=== PATIENT | male | born 1975 | race Caucasian/White ===

== ENCOUNTER 2021-11-04 07:08 | Observation (INO) | payer BC ==
[~2021-11-04] VITALS: Ht 177.8 cm; Wt 94.5 kg
[2021-11-04] VITALS (10 sets, daily range): BP systolic 110–213; BP diastolic 58–104
--- NOTE | 2021-11-04 07:08 | NUR ---
PT TO ROOM VIA WC FOR BEDSIDE TRIAGE SPEAKING IN COMPLETE SENTENCES IN NO DISTRESS
[2021-11-04 08:04] LABS: HEMATOCRIT 45.6 % (39.0-50.0); HEMOGLOBIN 15.8 g/dl (14.0-18.0); MEAN CELL VOLUME 95.2 fL CALC (80.0-100.0); MEAN CORPUSCULAR HGB CONC 34.6 g/dL CAL (32.0-36.0); NEUT# 2.54 thou/uL (1.82-7.42); RED BLOOD COUNT 4.79 mill/uL (4.70-6.10); RED CELL DISTRI WIDTH 11.9 % (11.5-15.5)
--- NOTE | 2021-11-04 08:20 | NUR ---
PATIENT AWAITING RESULTS OF LABS AND RADIOLOGY.
--- NOTE | 2021-11-04 08:36 | NUR ---
UP AMBULATED TO RESTROOM IN NO DISTRESS
[2021-11-04 08:48] LABS: ALBUMIN 4.4 g/dL (3.2-5.0); ALKALINE PHOSPHATASE 68 u/l (38-126); ANION GAP 16 (6-22 (CALC)); BILIRUBIN, TOTAL 0.3 mg/dL (0.0-1.4); BUN 14 mg/dL (9-20); BUN/CREATININE RATIO 12 (12-20 (CALC)); CARBON DIOXIDE 20 mmol/l (22-30); CHLORIDE 106 mmol/l (95-108); CREATININE 1.1 mg/dL (0.7-1.3); GFR > 60 ML/MIN (>=60 (CALC)); GFR FOR AFR.AMER. > 60 ML/MIN (>=60 (CALC)); POTASSIUM 3.6 mmol/l (3.5-5.1); SGOT/AST 36 u/l (17-59); SODIUM 139 mmol/l (137-146); TOTAL PROTEIN 7.4 g/dL (6.3-8.2)
[2021-11-04 09:00] LABS: MYOGLOBIN 43 ng/mL (0 - 121)
--- NOTE | 2021-11-04 12:53 | NUR ---
REPORT GIVEN TO ICU. PATIENT TO GO TO ICU 5.
--- NOTE | 2021-11-04 12:56 | NUR ---
TRANSPORTED TO ICU VIA STRETCHER IN NO DISTRESS
[2021-11-04] MEDS ORDERED: BL IBUPROFEN200 MG PO (13:51)
--- NOTE | 2021-11-04 14:00 | NUR ---
PT ARRIVES TO ROOM 5 IN THE ICU, ALERT AND ORIENTED X 3. LUNGS CLEAR, RA. PT FEELS MUCH BETTER NOW THAT BLOOD PRESSURE IS LOWER. PT WITH NEGATIVE HEALTH HISTORY, NOW RESTS IN THE BED IN NO DISTRESS.
--- NOTE | 2021-11-04 16:32 | NUR ---
CARDENE DRIP LOWERED FROM 5 MG/HR TO 2.5 MG/HR PER ACCEPTABLE BLOOD PRESSURE IN THE 130s AND THE ADDITION OF COZAAR. PT RESTS IN THE BED IN NO ACUTE DISTRESS.
--- NOTE | 2021-11-04 17:57 | NUR ---
PT SEEN BY ESSIE TIRADO THIS AFTERNOON, WHO TURNED CARDENE DRIP OFF. PT CURRENTLY 140/88. NO COMPLAINTS, NO DISTRESS.
--- NOTE | 2021-11-04 19:45 | NUR ---
RESTING IN BED. DENIES ANY DISCOMFORTS. VSS. BP STABLE. RESP NON-LABORED. LUNGS CLEAR. NO PERIPHERAL EDEMA, PULSES INTACT. BEARING GRINDER SHOWS SR. DISCUSSED PLAN OF CARE. DENIES NEEDS AT THIS TIME. CALL VAN IN REACH.
--- NOTE | 2021-11-04 21:50 | NUR ---
RESTING QUIETLY IN BED. VSS. SB ON MONITOR.
--- NOTE | 2021-11-05 | NUR ---
RESTING WITH EYES CLSOED. RESP NON-LABORED. VSS. SR ON MONITOR.
[2021-11-05 00:16] VITALS: BP 137/88
[2021-11-05 02:00] VITALS: BP 117/71
--- NOTE | 2021-11-05 02:00 | NUR ---
NO CHANGES TO REPORT. VSS. SR ON MONITOR.
--- NOTE | 2021-11-05 04:00 | NUR ---
RESTING WITH EYES CLSOED. RESP NON-LABORED. VSS.
[2021-11-05 04:04] VITALS: BP 98/74
[2021-11-05 05:00] VITALS: BP 119/84
[2021-11-05 06:00] VITALS: BP 124/81
--- NOTE | 2021-11-05 06:00 | NUR ---
NO CHANGES TO REPORT. VSS.
[2021-11-05 06:13] LABS: HEMATOCRIT 49.4 % (39.0-50.0); HEMOGLOBIN 16.9 g/dl (14.0-18.0); MEAN CELL VOLUME 97.8 fL CALC (80.0-100.0); MEAN CORPUSCULAR HGB 33.5 pG CALC (26.0-32.0); MEAN CORPUSCULAR HGB CONC 34.2 g/dL CAL (32.0-36.0); RED BLOOD COUNT 5.05 mill/uL (4.70-6.10); RED CELL DISTRI WIDTH 12.2 % (11.5-15.5)
[2021-11-05 06:35] LABS: ANION GAP 16 (6-22 (CALC)); BUN 14 mg/dL (9-20); BUN/CREATININE RATIO 11 (12-20 (CALC)); CALCULATED LDLCHOLESTEROL 156 mg/dL (62-129 (CALC)); CARBON DIOXIDE 22 mmol/l (22-30); CHLORIDE 109 mmol/l (95-108); CHOLESTEROL HDL RATIO 5.6 (<4.4 (CALC)); CREATININE 1.3 mg/dL (0.7-1.3); GFR 59 ML/MIN (>=60 (CALC)); GFR FOR AFR.AMER. > 60 ML/MIN (>=60 (CALC)); HDL CHOLESTEROL 43 mg/dL (>=40); MAGNESIUM 2.1 mg/dL (1.6-2.3); POTASSIUM 4.3 mmol/l (3.5-5.1); SODIUM 142 mmol/l (137-146); TOTAL CHOLESTEROL 240 mg/dl (0-199); TOTAL TRIGLYCERIDES 210 mg/dl (30-149); VLDL CHOLESTROL 42 mg/dl (5-56 (CALC))
--- NOTE | 2021-11-05 08:16 | NUR ---
PT IS AWAKE, ALERT, ORIENTED X 3. LUNGS CLEAR, RA. PT AMBULATORY IN ROOM WITH STEADY GAIT. BLOOD PRESSURE WELL CONTROLLED, 124/81. PT FEELS GOOD, ANTICIPATES DISCHARGE TODAY.
[2021-11-05] MEDS ORDERED: AMLODIPINE BESYL5 MG PO (08:27)
[2021-11-05] MEDS ORDERED: LOSARTAN POTASS25 MG PO (08:27)
[2021-11-05 09:19] VITALS: BP 124/81
--- NOTE | 2021-11-05 09:41 | NUR ---
PT READIED FOR DISCHARGE AFTER BEING SEEN BY DR SINGLETARY THIS MORNING. MORNING MED GIVEN, PT VERBALIZES UNDERSTANDING OF DC INSTRUCTIONS, CONDITION STABLE. PT WAITS FOR HIS FIANCE TO ARRIVE.
== END 2021-11-05 09:45 | disposition home or self-care (01) | DRG 305 ==
LOC: ED 07:08 → ICU 11:49
PROVIDERS: Emergency Medicine; Nurse Practitioner; ADMIT Internal Medicine; ATTEND Internal Medicine
DX: I16.0 Hypertensive urgency (principal); I10 Essential (primary) hypertension; R73.03 Prediabetes; Z20.822 Contact with and (suspected) exposure to COVID-19
CPT/HCPCS: J1650; Q9967